=== PATIENT | male | born 1945 | race Caucasian/White ===

== ENCOUNTER 2022-03-05 17:27 | Observation (INO) | payer MEDICARE, OTHER ==
[2022-03-05] MEDS ORDERED: Sodium Chloride 0.9% 10 ML Syringe FLUSH PRN (17:58)
[2022-03-05] MEDS: Sodium Chloride 0.9% 1,000 ML IV ONE (18:15)
[2022-03-05 18:48] LABS: ESTIMATED GFR 56 MLS/MIN (>60)
[2022-03-05] MEDS: Sodium Chloride 0.9% 1,000 ML IV SCH (19:30)
[2022-03-05] MEDS: Cefepime 2 GM in Sodium Chloride 0.9% 50 ML IV ONE (20:39)
[2022-03-05] MEDS ORDERED: LORazepam 2 MG/ML SDV IV PRN (22:40)
[2022-03-05] MEDS ORDERED: Sodium Chloride 0.9% 1,000 ML IV SCH (22:45)
[2022-03-06] MEDS: Levothyroxine 100 MCG Tab PO SCH (07:37)
[2022-03-06] MEDS: metFORMIN 500 MG Tab PO SCH (07:37)
[2022-03-06] MEDS: Thiamine 100 MG Tab PO SCH (07:38)
[2022-03-06] MEDS: Omeprazole 20 MG Cap.CR PO SCH (07:38)
[2022-03-06] MEDS: Magnesium Oxide 400 MG Tab PO SCH (07:38)
[2022-03-06] MEDS: Gabapentin 600 MG Tab PO SCH (07:38)
[2022-03-06] MEDS: Tamsulosin 0.4 MG Cap.ER PO SCH (07:38)
[2022-03-06] MEDS: Sertraline 100 MG Tab PO SCH (07:39)
[2022-03-06] MEDS: Nicotine 14 MG/24 Hr Patch TRDERM SCH (07:59)
[2022-03-06 09:55] LABS: ESTIMATED GFR > 60 MLS/MIN (>60)
== END 2022-03-06 12:07 | disposition home or self-care (01) ==
LOC: LB.ED 17:27 → LB.MS 22:40 → UNDOADMOB 23:40 → UNDODISOB 03-06 12:07
PROVIDERS: ADMIT Physician Assistant; ATTEND Physician Assistant
DX: R41.82 Altered mental status, unspecified (principal); F10.929 Alcohol use, unspecified with intoxication, unspecified; E87.2 Acidosis; R41.0 Disorientation, unspecified; E11.9 Type 2 diabetes mellitus without complications; E03.9 Hypothyroidism, unspecified; H91.90 Unspecified hearing loss, unspecified ear; I95.9 Hypotension, unspecified; Z79.84 Long term (current) use of oral hypoglycemic drugs; Z20.822 Contact with and (suspected) exposure to COVID-19; Z79.890 Hormone replacement therapy; Z79.899 Other long term (current) drug therapy
CPT/HCPCS: 36415; 70450; 71045; 80048; 80053; 80307; 81003; 82947; 83605; 85025; 87040; 93005; 93010; 96361; 96365; 99217; 99220; 99285-25; A0425; A0429; A9270-GY; J0692; J3490; J7030; U0002